=== PATIENT | male | born 1995 | race Two or more races ===

== ENCOUNTER 2024-07-24 10:40 | Day surgery (SDC) | payer BC, SELFPAY ==
[2024-07-23 15:03] VITALS: BMI 27.3
[2024-07-24] VITALS (9 sets, daily range): BP systolic 121–155; BP diastolic 79–105; PULSE 115–145; RESP 13–22; TEMP 36.2–37; O2SAT 94–100; BMI 27.9
[2024-07-24] MEDS: BENZOCAINE 20% (Hurricaine) SPRAY 1 DOSE TOP (12:35)
[2024-07-24] MEDS: fentaNYL CIT INJ 50 mCg/ML AMP 2ML (ASD USE ONLY) IV (12:37)
[2024-07-24] MEDS: DiphenhydrAMINE INJ 50 MG/ML VIAL 25 MG IV (12:37)
[2024-07-24] MEDS: MIDAZOLAM INJ 1 MG/ML VIAL 2 ML 2 MG IV (12:39)
[2024-07-24] MEDS: MEPERIDINE INJ 50 MG/ML VIAL IV (12:43)
[2024-07-24] MEDS: ONDANSETRON INJ 2 MG/ML INJ 2 ML 4 MG IV (12:52)
--- NOTE | 2024-07-24 12:58 | SUR.PHASEII ---
Patient into recovery with no acute distress noted, v/s stable, no complaints of pain or nausea at this time. report received from Jayla Wesley.
--- NOTE | 2024-07-24 13:20 | SUR.PHASEII ---
informed that patient's heart rate remains elevated in the 120's. patient denies chest pain, shortness of breath, chest tightness. patient pre-op heart rate noted to be 115. patient denies cardiac history. per it is okay to send patient home in this condition.
== END 2024-07-24 13:50 | disposition home or self-care (01) ==
PROVIDERS: PCP Family Medicine; Referring Provider Specialist; Visit Provider Specialist
PROC: (CPT 43239; principal; 2024-07-24 13:45)
DX: K22.10 Ulcer of esophagus without bleeding (principal); K22.2 Esophageal obstruction; K29.70 Gastritis, unspecified, without bleeding; K31.89 Other diseases of stomach and duodenum; B96.81 Helicobacter pylori [H. pylori] as the cause of diseases classified elsewhere
CPT/HCPCS: 43239; 43248; A4649; C1769; J1200; J2175; J2250; J2405; J3010; A9270

== ENCOUNTER → 2024-12-11 | Outpatient (CLI) | payer BC, SELFPAY ==
[2024-12-11 11:34] LABS: Urea Breath Test Negative (Negative)
== END | disposition home or self-care (01) ==
LOC: COPL 10:06
PROVIDERS: PCP Family Medicine; Referring Provider Specialist; Visit Provider Specialist
DX: Z01.89 Encounter for other specified special examinations (principal)
CPT/HCPCS: 83013; 83014